=== PATIENT | female | born 2000 | race Two or more races ===

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

== ENCOUNTER → 2018-12-14 | Outpatient (CLI) | payer OTHER ==
[~2018-12-14] MED LIST: AZIT250T6 PO; IBUP-1007 PO
[2018-12-14 11:53] LABS: BASO % 1 % (0-3); EOS % 1 % (0-3); HEMATOCRIT 30.8 % (36.0-47.0); HEMOGLOBIN 10.3 g/dL (12.0-15.5); LYMPH # 1.2 x10^3/uL (1.0-4.8); LYMPH % 19 % (24-48); MEAN CORPUSCULAR HEMOGLOBIN 28 pg (25-35); MEAN CORPUSCULAR HGB CONC 33 g/dL (31-37); MEAN CORPUSCULAR VOLUME 84 fL (79-100); MONO # 0.2 x10^3/uL (0.0-1.1); MONO % 3 % (0-9); NEUT # 4.9 x10^3uL (1.8-7.7); NEUT % 77 % (31-73); PLATELET COUNT 446 x10^3/uL (140-400); RED BLOOD COUNT 3.66 x10^6/uL (3.50-5.40); WHITE BLOOD COUNT 6.4 x10^3/uL (4.0-11.0)
[2018-12-14 12:01] LABS: BILIRUBIN,URINE NEGATIVE (NEG); CLARITY,URINE CLEAR; COLOR,URINE YELLOW; NITRITE,URINE POSITIVE (NEG); PROTEIN,URINE 30 mg/dL (NEG-TRACE); UROBILINOGEN,URINE 0.2 mg/dL (0.2 mg/dL)
[2018-12-14 12:07] LABS: BACTERIA,URINE MANY /HPF (0-FEW); RBC,URINE 0 /HPF (0-2); WBC,URINE >40 /HPF (0-4)
[2018-12-14 12:30] LABS: ALBUMIN 2.7 g/dL (3.4-5.0); ALBUMIN/GLOBULIN RATIO 0.4 (1.0-1.7); C-REACTIVE PROTEIN 17.9 mg/L (0-3.3); CALCIUM 8.2 mg/dL (8.5-10.1); CREATININE 0.7 mg/dL (0.6-1.0); GFR 106.7; POTASSIUM 3.7 mmol/L (3.5-5.1); TOTAL BILIRUBIN 0.3 mg/dL (0.2-1.0); TOTAL PROTEIN 9.5 g/dL (6.4-8.2)
--- NOTE | 2018-12-14 16:55 | RAD ---
Bilateral hand radiograph 12/14/2018 12:00 AM INDICATION: Polyarthralgia COMPARISON: None available. TECHNIQUE: 3 views of the right and 3 views the left hand are provided. FINDINGS: There is no acute fracture or dislocation. Bone mineralization is within normal limits. Joint spaces are maintained. Regional soft tissues are within normal limits. There is no soft tissue gas or osseous erosion. IMPRESSION: No acute fracture or dislocation. Electronically signed by: Laya Holman MD (12/14/2018 4:52 PM) [id number]
[2018-12-14 17:11] LABS: RHEUMATOID FACTOR <10.0 IU/mL (0.0-13.9)
[2018-12-15 22:08] LABS: CYCLIC CITRULLIN PEP AB 9 units (0-19)
== END | disposition home or self-care (01) ==
LOC: RAD 11:19
PROVIDERS: ATTEND Internal Medicine Rheumatology
DX: M25.542 Pain in joints of left hand (principal); M25.541 Pain in joints of right hand
CPT/HCPCS: 36415; 73130; 80053; 81001; 85025; 85651; 86140; 86200; 86431; 87086; 87186

== ENCOUNTER → 2019-09-11 | Outpatient (CLI) | payer OTHER ==
--- NOTE | 2019-09-12 03:46 | RAD ---
AP lateral x-rays bilateral hands HISTORY: Arthritis, lupus. FINDINGS: No periarticular osteopenia. No bony erosions. No fracture or dislocation. Soft tissues are unremarkable. IMPRESSION: Normal exam. AP lateral x-rays bilateral feet HISTORY: Arthritis, lupus. FINDINGS: No periarticular osteopenia. No bony erosions. No fracture or dislocation. Soft tissues are unremarkable. IMPRESSION: Normal exam. Electronically signed by: Sravan Kingston MD (09/12/2019 3:43 AM) [id number]
--- NOTE | 2019-09-12 03:46 | RAD ---
AP lateral x-rays bilateral hands HISTORY: Arthritis, lupus. FINDINGS: No periarticular osteopenia. No bony erosions. No fracture or dislocation. Soft tissues are unremarkable. IMPRESSION: Normal exam. AP lateral x-rays bilateral feet HISTORY: Arthritis, lupus. FINDINGS: No periarticular osteopenia. No bony erosions. No fracture or dislocation. Soft tissues are unremarkable. IMPRESSION: Normal exam. Electronically signed by: Sravan Kingston MD (09/12/2019 3:43 AM) [id number]
[2019-09-13 13:12] LABS: C3 COMPLEMENT 36 mg/dL (82-167); C4 COMPLEMENT 11 mg/dL (14-44)
[2019-09-14 20:08] LABS: ANA INTERP Positive (.)
== END | disposition home or self-care (01) ==
LOC: RAD 21:07
PROVIDERS: ATTEND Internal Medicine Rheumatology
DX: I73.00 Raynaud's syndrome without gangrene (principal); M06.4 Inflammatory polyarthropathy; M32.9 Systemic lupus erythematosus, unspecified
CPT/HCPCS: 36415; 73120; 73620; 85651; 86038; 86140; 86160

== ENCOUNTER → 2019-11-13 | Outpatient (CLI) | payer OTHER ==
[2019-11-13 10:02] LABS: BASO % 0 % (0-3); EOS % 0 % (0-3); HEMATOCRIT 34.6 % (36.0-47.0); HEMOGLOBIN 11.4 g/dL (12.0-15.5); LYMPH # 2.5 x10^3/uL (1.0-4.8); LYMPH % 21 % (24-48); MEAN CORPUSCULAR HEMOGLOBIN 29 pg (25-35); MEAN CORPUSCULAR HGB CONC 33 g/dL (31-37); MEAN CORPUSCULAR VOLUME 88 fL (79-100); MONO # 0.6 x10^3/uL (0.0-1.1); MONO % 5 % (0-9); NEUT # 8.9 x10^3/uL (1.8-7.7); NEUT % 74 % (31-73); PLATELET COUNT 503 x10^3/uL (140-400); RED BLOOD COUNT 3.94 x10^6/uL (3.50-5.40); RED CELL DISTRIBUTION WIDTH 15.3 % (11.5-14.5); WHITE BLOOD COUNT 12.1 x10^3/uL (4.0-11.0)
[2019-11-13 10:14] LABS: BILIRUBIN,URINE NEGATIVE (NEG); CLARITY,URINE CLEAR; COLOR,URINE YELLOW
[2019-11-13 10:15] LABS: NITRITE,URINE NEGATIVE (NEG); PROTEIN,URINE NEGATIVE (NEG-TRACE); UROBILINOGEN,URINE 0.2 mg/dL (0.2 mg/dL)
[2019-11-13 10:20] LABS: BACTERIA,URINE FEW /HPF (0-FEW); RBC,URINE >40 /HPF (0-2); SQUAMOUS EPITHELIAL CELL,UR FEW /LPF; WBC,URINE OCC /HPF (0-4)
[2019-11-13 10:21] LABS: ALBUMIN 3.3 g/dL (3.4-5.0); ALBUMIN/GLOBULIN RATIO 0.7 (1.0-1.7); C-REACTIVE PROTEIN 1.9 mg/L (0-3.3); CALCIUM 8.9 mg/dL (8.5-10.1); CREATININE 0.7 mg/dL (0.6-1.0); GFR 105.6; POTASSIUM 3.6 mmol/L (3.5-5.1); TOTAL BILIRUBIN 0.2 mg/dL (0.2-1.0); TOTAL PROTEIN 7.8 g/dL (6.4-8.2)
[2019-11-14 11:10] LABS: C3 COMPLEMENT 83 mg/dL (82-167); C4 COMPLEMENT 21 mg/dL (14-44)
== END | disposition home or self-care (01) ==
LOC: LAB 09:27
PROVIDERS: ATTEND Internal Medicine Rheumatology
DX: M32.8 Other forms of systemic lupus erythematosus (principal); M06.4 Inflammatory polyarthropathy; R60.9 Edema, unspecified
CPT/HCPCS: 36415; 80053; 81001; 85025; 85651; 86140; 86160; 87801

== ENCOUNTER → 2020-02-07 | Outpatient (CLI) | payer OTHER ==
[2020-02-07 14:08] LABS: BASO % 0 % (0-3); EOS % 0 % (0-3); LYMPH # 0.9 x10^3/uL (1.0-4.8); LYMPH % 9 % (24-48); MEAN CORPUSCULAR HEMOGLOBIN 30 pg (25-35); MEAN CORPUSCULAR HGB CONC 34 g/dL (31-37); MEAN CORPUSCULAR VOLUME 86 fL (79-100); MONO # 0.1 x10^3/uL (0.0-1.1); MONO % 1 % (0-9); NEUT # 8.2 x10^3/uL (1.8-7.7); NEUT % 89 % (31-73); PLATELET COUNT 488 x10^3/uL (140-400); RED CELL DISTRIBUTION WIDTH 12.6 % (11.5-14.5); WHITE BLOOD COUNT 9.2 x10^3/uL (4.0-11.0)
[2020-02-07 14:29] LABS: ALBUMIN 3.4 g/dL (3.4-5.0); ALBUMIN/GLOBULIN RATIO 0.7 (1.0-1.7); C-REACTIVE PROTEIN 8.4 mg/L (0-3.3); CALCIUM 8.7 mg/dL (8.5-10.1); CREATININE 0.7 mg/dL (0.6-1.0); GFR 104.6; TOTAL BILIRUBIN 0.3 mg/dL (0.2-1.0); TOTAL PROTEIN 8.3 g/dL (6.4-8.2)
[2020-02-07 15:14] LABS: % BANDS 1 % (0-9); % LYMPHS 9 % (24-48); % MONOS 1 % (0-10); % SEGS 89 % (35-66); PLT ESTIMATE INCREASED (ADEQUATE)
[2020-02-09 15:11] LABS: C3 COMPLEMENT 104 mg/dL (82-167); C4 COMPLEMENT 29 mg/dL (14-44)
== END | disposition home or self-care (01) ==
LOC: LAB 13:44
PROVIDERS: ATTEND Internal Medicine Rheumatology
DX: M32.8 Other forms of systemic lupus erythematosus (principal); K76.0 Fatty (change of) liver, not elsewhere classified
CPT/HCPCS: 36415; 80053; 85007; 85025; 86140; 86160

== ENCOUNTER → 2020-03-11 | Outpatient (CLI) | payer OTHER ==
[2020-03-11 13:05] LABS: BASO % 0 % (0-3); EOS % 0 % (0-3); HEMATOCRIT 36.7 % (36.0-47.0); HEMOGLOBIN 12.6 g/dL (12.0-15.5); LYMPH # 1.3 x10^3/uL (1.0-4.8); LYMPH % 11 % (24-48); MEAN CORPUSCULAR HEMOGLOBIN 29 pg (25-35); MEAN CORPUSCULAR HGB CONC 34 g/dL (31-37); MEAN CORPUSCULAR VOLUME 85 fL (79-100); MONO # 0.3 x10^3/uL (0.0-1.1); MONO % 2 % (0-9); NEUT # 10.6 x10^3/uL (1.8-7.7); NEUT % 87 % (31-73); PLATELET COUNT 554 x10^3/uL (140-400); RED CELL DISTRIBUTION WIDTH 12.3 % (11.5-14.5); WHITE BLOOD COUNT 12.3 x10^3/uL (4.0-11.0)
[2020-03-11 13:23] LABS: ALBUMIN 3.5 g/dL (3.4-5.0); ALBUMIN/GLOBULIN RATIO 0.7 (1.0-1.7); C-REACTIVE PROTEIN 15.5 mg/L (0-3.3); CALCIUM 8.4 mg/dL (8.5-10.1); CREATININE 0.8 mg/dL (0.6-1.0); GFR 89.7; POTASSIUM 3.4 mmol/L (3.5-5.1); TOTAL BILIRUBIN 0.5 mg/dL (0.2-1.0); TOTAL PROTEIN 8.5 g/dL (6.4-8.2)
[2020-03-11 13:39] LABS: BILIRUBIN,URINE NEGATIVE (NEG); CLARITY,URINE CLEAR; COLOR,URINE YELLOW; NITRITE,URINE NEGATIVE (NEG); PROTEIN,URINE 30 mg/dL (NEG-TRACE); UROBILINOGEN,URINE 0.2 mg/dL (0.2 mg/dL)
[2020-03-11 13:53] LABS: SQUAMOUS EPITHELIAL CELL,UR FEW /LPF
[2020-03-11 13:54] LABS: BACTERIA,URINE FEW /HPF (0-FEW)
[2020-03-11 13:55] LABS: WBC,URINE RARE /HPF (0-4)
[2020-03-11 14:10] LABS: % BANDS 3 % (0-9); % EOS 1 % (0-5); % LYMPHS 13 % (24-48); % MONOS 2 % (0-10); % SEGS 81 % (35-66); PLT ESTIMATE INCREASED (ADEQUATE)
[2020-03-13 14:11] LABS: C3 COMPLEMENT 116 mg/dL (82-167); C4 COMPLEMENT 31 mg/dL (14-44)
== END | disposition home or self-care (01) ==
LOC: LAB 12:19
PROVIDERS: ATTEND Internal Medicine Rheumatology
DX: M06.4 Inflammatory polyarthropathy (principal); M32.8 Other forms of systemic lupus erythematosus
CPT/HCPCS: 36415; 80053; 81001; 85007; 85025; 86140; 86160

== ENCOUNTER → 2021-06-29 | Outpatient (CLI) | payer OTHER | LOC: SPEC 16:12 | PROVIDERS: ATTEND Obstetrics & Gynecology | DX: N89.8 Other specified noninflammatory disorders of vagina (principal) | CPT/HCPCS: 88175; Q0111 ==

== ENCOUNTER → 2021-08-07 | Outpatient (CLI) | payer OTHER ==
--- NOTE | 2021-08-09 16:41 | RAD ---
US RENAL BILAT History: Reason: LUPUS / Spl. Instructions: / History: Comparison: None. Procedure: Transabdominal ultrasound images are obtained of the kidneys and bladder. Findings: Right kidney: measures 12.2 x 5.7 x 6.0 cm. Increased renal cortical echotexture. No hydronephrosis. Left kidney: measures 12.8 x 6.3 x 7.8 cm. Increased renal cortical echotexture. No hydronephrosis. Urinary bladder: Decompressed urinary bladder. Aorta and IVC not well seen due to overlying structures. IMPRESSION: 1. Increased bilateral renal cortical echotexture, may indicate medical renal disease. Electronically signed by: Young Vallejo DO (08/09/2021 4:39 PM) [facility]
== END ==
LOC: US 14:54
PROVIDERS: ATTEND Family Medicine
DX: M32.9 Systemic lupus erythematosus, unspecified (principal)
CPT/HCPCS: 76770

== ENCOUNTER → 2021-10-19 | Outpatient (CLI) | payer OTHER ==
--- NOTE | 2021-10-19 15:32 | RAD ---
EXAM: Bilateral hands, 3 views. HISTORY: Polyarthralgia. COMPARISON: None. FINDINGS: 3 views of both hands are obtained. There is no fracture, dislocation or subluxation. The a lignment and joint spaces are unremarkable. There is no suspicious osseous lesion. There is no radiod ense foreign body. IMPRESSION: No acute osseous finding. Electronically signed by: Trina Madden MD (10/19/2021 3:30 PM) [id number]
== END ==
LOC: LAB 14:56
PROVIDERS: ATTEND Internal Medicine Rheumatology
DX: M25.541 Pain in joints of right hand (principal); M25.542 Pain in joints of left hand
CPT/HCPCS: 73130-50

== ENCOUNTER → 2021-10-28 | Outpatient (CLI) | payer OTHER ==
[2021-10-29 05:12] LABS: RHEUMATOID FACTOR <10.0 IU/mL (<14.0)
[2021-10-30 17:26] LABS: ANA INTERP Positive (.)
[2021-10-30 22:08] LABS: CYCLIC CITRULLIN PEP AB 10 units (0-19)
== END ==
LOC: LAB 10:21
PROVIDERS: ATTEND Internal Medicine Rheumatology
DX: M25.50 Pain in unspecified joint (principal); Z79.899 Other long term (current) drug therapy
CPT/HCPCS: 85651; 86038; 86140; 86200; 86431; 86481